=== PATIENT | female | born 1940 | race Hispanic/Latino ===

== ENCOUNTER 2019-07-28 11:38 | Outpatient (CLI) | payer OTHER, SELFPAY ==
[2019-07-28 12:28] LABS: Hemoglobin A1C 6.8 % (<5.7)
[2019-07-28 12:32] LABS: Blood Urea Nitrogen 14 mg/dL (7-17); Calcium 9.5 mg/dL (8.4-10.2); Carbon Dioxide 29 mmol/L (22-30); Chloride 103 mmol/L (98-107); Cholesterol 128 mg/dL (0-200); Estimated Glomerular Filt Rate > 60; Glucose 117 mg/dL (65-105); HDL Direct 44 mg/dL; Potassium 4.3 mmol/L (3.4-5.0); Sodium 138 mmol/L (137-145); Triglycerides 67 mg/dL (<150)
[2019-07-28 12:43] LABS: LDL Cholesterol Direct 67 mg/dL
[2019-07-28 14:40] LABS: Creatinine Urine 45.9 mg/dL
[2019-07-28 14:52] LABS: MALB Creatinine Ratio < 13.1 mg/g (0-30); Microalbumin Urine Random < 6.0 mg/L (0-16.7)
== END 2019-07-28 11:39 | disposition home or self-care (01) ==
LOC: ANHIMG 11:40
PROVIDERS: PCP Internal Medicine; Visit Provider Internal Medicine
DX: E11.9 Type 2 diabetes mellitus without complications (principal); E78.5 Hyperlipidemia, unspecified
CPT/HCPCS: 36415; 80048; 80061; 82043; 83036

== ENCOUNTER 2019-10-27 11:47 | Outpatient (CLI) | payer OTHER, SELFPAY ==
[2019-10-27 13:36] LABS: Basophils Percent Auto 0.2 % (0.2-1.2); Eosinophils Absolute Auto 0.1 K/mm3 (0-0.3); Eosinophils Percent Auto 1.9 % (0-4.4); Hemoglobin 12.5 g/dL (12.0-15.0); Immature Granulocyte Absolute 0.01 K/mm3 (0.00-0.031); Immature Granulocyte Percent A 0.2 % (0-0.5); Immature Platelet Fraction Pct 1.5 % (0.9-11.2); Lymphocytes Absolute Auto 2.01 K/mm3 (0.9-3.2); Lymphocytes Percent Auto 39.1 % (18.3-44.2); Mean Corpuscular HGB Conc 32.9 g/dl (32-36); Mean Corpuscular Hemoglobin 30.4 pg (26-34); Mean Corpuscular Volume 92.5 fl (80-100); Mean Platelet Volume 10.1 fl (7.4-10.4); Monocytes Absolute Auto 0.4 K/mm3 (0.1-0.6); Monocytes Percent Auto 7.6 % (2.6-8.5); Neutrophils Absolute Auto 2.6 K/mm3 (1.3-6.7); Platelet Count Result 143 k/mm3 (150-375); Red Blood Count 4.11 M/mm3 (4.2-5.4); Red Cell Distribution Width 13.5 % (11.5-14.5); White Blood Count 5.1 K/mm3 (4.5-10.0)
[2019-10-27 13:40] LABS: Hemoglobin A1C 6.7 % (<5.7)
[2019-10-27 13:45] LABS: Alanine Aminotransferase 13 U/L (4-35); Albumin Level 4.4 g/dL (3.5-5.1); Alkaline Phosphatase 63 U/L (38-126); Aspartate Amino Transferase 24 U/L (14-36); Bilirubin,Total 0.3 mg/dL (0.2-1.3); Blood Urea Nitrogen 14 mg/dL (7-17); Calcium 9.6 mg/dL (8.4-10.2); Carbon Dioxide 25 mmol/L (22-30); Chloride 106 mmol/L (98-107); Estimated Glomerular Filt Rate > 60; Glucose 92 mg/dL (65-105); Potassium 4.1 mmol/L (3.4-5.0); Sodium 137 mmol/L (137-145)
[2019-10-27 14:08] LABS: Creatinine Urine 28.7 mg/dL
[2019-10-27 14:19] LABS: Microalbumin Urine Random < 6.0 mg/L (0-16.7)
== END 2019-10-27 11:48 | disposition home or self-care (01) ==
PROVIDERS: PCP Internal Medicine; Visit Provider Internal Medicine
DX: E11.9 Type 2 diabetes mellitus without complications (principal)
CPT/HCPCS: 36415; 80053; 82043; 83036; 85025; 85055

== ENCOUNTER 2020-01-29 10:47 | Outpatient (CLI) | payer OTHER, SELFPAY ==
[2020-01-29 11:31] LABS: Hemoglobin A1C 5.9 % (<5.7)
[2020-01-29 11:33] LABS: Alanine Aminotransferase 15 U/L (4-35); Albumin Level 4.6 g/dL (3.5-5.1); Alkaline Phosphatase 63 U/L (38-126); Anion Gap 8 mmol/L (8-16); Aspartate Amino Transferase 27 U/L (14-36); Bilirubin,Total 0.2 mg/dL (0.2-1.3); Blood Urea Nitrogen 15 mg/dL (7-17); Calcium 9.9 mg/dL (8.4-10.2); Carbon Dioxide 27 mmol/L (22-30); Chloride 102 mmol/L (98-107); Estimated Glomerular Filt Rate > 60; Glucose 100 mg/dL (65-105); Potassium 4.5 mmol/L (3.4-5.0); Sodium 137 mmol/L (137-145)
[2020-01-29 11:50] LABS: Creatinine Urine 38.3 mg/dL
[2020-01-29 12:20] LABS: MALB Creatinine Ratio < 15.7 mg/g (0-30); Microalbumin Urine Random < 6.0 mg/L (0-16.7)
== END 2020-01-29 10:48 | disposition home or self-care (01) ==
LOC: ANHLAB 10:49
PROVIDERS: PCP Internal Medicine; Visit Provider Internal Medicine
DX: E11.9 Type 2 diabetes mellitus without complications (principal); M85.80 Other specified disorders of bone density and structure, unspecified site; Z79.899 Other long term (current) drug therapy
CPT/HCPCS: 36415; 80053; 82043; 82306; 83036; 84443

== ENCOUNTER 2020-03-02 13:55 | Outpatient (CLI) | payer OTHER, SELFPAY ==
--- NOTE | ~2020-03-02 | MM_ITS ---
EXAMINATION: MM screening coretta BI w tina HISTORY: Screening TECHNIQUE: Craniocaudal and mediolateral oblique 3-D tomosynthesis images were obtained and synthetic 2-D images were generated. CAD analysis was submitted and interpreted. COMPARISON: Comparison to multiple prior studies sequentially, with oldest reviewed study dated 08/2013. BREAST PARENCHYMAL COMPOSITION: The breasts are heterogeneously dense, which may obscure small masses . FINDINGS: There is no evidence of suspicious mass, calcification, or architectural distortion to sugg est malignancy in either breast. There has been no suspicious interval change. IMPRESSION: 1. No mammographic evidence of malignancy. 2. Recommend routine screening mammography in one year. BI-RADS Category 1: Negative Reviewed, dictated and finalized at location A.
== END 2020-03-02 13:56 | disposition home or self-care (01) ==
LOC: ANHIMG 13:59
PROVIDERS: PCP Internal Medicine; Referring Provider Internal Medicine; Visit Provider Internal Medicine
DX: Z12.31 Encounter for screening mammogram for malignant neoplasm of breast (principal)
CPT/HCPCS: 77063; 77067

== ENCOUNTER 2020-12-31 12:36 | Emergency (ER) | payer MEDICARE, SELFPAY ==
[2020-12-31 12:44] VITALS: BP 103/82; PULSE 106; RESP 16; TEMP 37.3; O2SAT 100
--- NOTE | 2020-12-31 14:28 | ED.SKABFB ---
HPI - Skin/Abscess/Foreign Bdy General Chief complaint: Skin/Abscess/Foreign Body Stated complaint: rash to arm Time Seen by Provider: 12/31/20 13:45 History of Present Illness HPI narrative: Patient presents with rash all over her body. States symptoms have been present for the past couple days and seem to be spreading. She has the rash does not bother her as not itchy there is no pain. She denies any fevers, cough, congestion. She denies any nausea or vomiting. She is unsure what to do about the rash so she came in for evaluation Related Data Home Medications Medication Instructions Recorded Confirmed cholecalciferol (vitamin D3) 25 1,000 unit PO DAILY 06/09/19 07/21/20 mcg (1,000 unit) capsule Allergies Allergy/AdvReac Type Severity Reaction Status Date / Time alendronate sodium Allergy Unknown can not Verified 12/31/20 13:39 recall Review of Systems Review of Systems: CONSTITUTIONAL: Denies fever, chills, or sweats. EYES: Denies visual changes, redness, or discharge. ENT: Denies rhinorrhea, congestion, sore throat, or otalgia. CARDIOVASCULAR: Denies chest pain, palpitations, or edema. RESPIRATORY: Denies cough or dyspnea. GASTROINTESTINAL: Denies abdominal pain, nausea, vomiting, or diarrhea. GENITOURINARY: Denies dysuria or hematuria. SKIN: Denies itching. MUSCULOSKELETAL: Denies back pain, joint pain, or myalgia. NEUROLOGIC: Denies headache, numbness, dizziness, or weakness. PSYCHIATRIC: Denies anxiety or depression. 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 Costochondritis Diabetes Edentulous maxilla Essential hypertension History of Sanchez's palsy History of non-Hodgkin's lymphoma Hx of breast cancer Mixed diabetic hyperlipidemia associated with type 2 diabetes mellitus Mixed stress and urge incontinence Osteopenia Presbyopia Sebaceous cyst Urge incontinence Vitamin D deficiency, unspecified Surgical History Surgical History History of neck surgery S/P partial hysterectomy Family History Family History Mother Family history of diabetes mellitus in first degree relative Sibling Family history of diabetes mellitus in first degree relative Father Family history of heart disease in male family member before age 55 Other Diabetes mellitus Social History Social History Social History: Smoking status: Never smoker Second hand tobacco smoke exposure: No Alcohol intake: never Substance use: never Substance use type: does not use Gender identity (if verbalized by the patient): Female Exam Narrative: GENERAL: Well-appearing, well-nourished, and in no acute distress. HEAD: Normocephalic, atraumatic. EYES: PERRLA and EOMI. ENT: Nares clear, no rhinorrhea or epistaxis. Mucous membranes moist. NECK: Supple. No masses. No JVD ABDOMEN: Soft, nontender, nondistended, normal active bowel sounds. EXTREMITIES: Normal range of motion. No edema. SKIN: Diffuse rash all over the body to include torso and extremities palms and soles are spared no predominance in between the fingers no desquamation no mucosal membrane involvement. Rash is erythematous with central pustules no desquamation no bullae NEURO: No focal deficits. Alert and oriented x3. PSYCH: Normal mood and affect. Course Vital Signs Vital signs: Vital Signs Temperature 37.3 C 12/31/20 12:44 Pulse Rate 106 H 12/31/20 12:44 Respiratory Rate 16 12/31/20 12:44 Blood Pressure 103/82 12/31/20 12:44 Pulse Oximetry 100 12/31/20 12:44 Temperature 37.3 C 12/31/20 12:44 Pulse Rate 90 12/31/20 14:37 Respiratory Rate 18 12/31/20 14:37 Blood Pre
[2020-12-31 14:37] VITALS: BP 110/76; PULSE 90; RESP 18; O2SAT 100
== END 2020-12-31 14:38 | disposition home or self-care (01) ==
PROVIDERS: Emergency Provider Emergency Medicine; PCP Internal Medicine
DX: B09 Unspecified viral infection characterized by skin and mucous membrane lesions (principal); E11.9 Type 2 diabetes mellitus without complications; I10 Essential (primary) hypertension; M85.80 Other specified disorders of bone density and structure, unspecified site; E55.9 Vitamin D deficiency, unspecified; H52.4 Presbyopia; E78.2 Mixed hyperlipidemia; Z85.72 Personal history of non-Hodgkin lymphomas; Z85.3 Personal history of malignant neoplasm of breast
CPT/HCPCS: 99281

== ENCOUNTER 2021-12-14 09:34 | Outpatient (CLI) | payer OTHER, SELFPAY ==
--- NOTE | ~2021-12-14 | MM_ITS ---
EXAMINATION: MM screening coretta BI w tina HISTORY: Screening mammogram TECHNIQUE: Craniocaudal and mediolateral oblique 3-D tomosynthesis images were obtained and synthetic 2-D images were generated. CAD analysis was submitted and interpreted. COMPARISON: 03/02/2020, 02/06/2019, 02/04/2018 bilateral screening mammogram examinations BREAST PARENCHYMAL COMPOSITION: The breasts are heterogeneously dense, which may obscure small masses . FINDINGS: Scattered bilateral benign calcifications. There is no evidence of suspicious mass, calcifi cation, or architectural distortion to suggest malignancy in either breast. There has been no suspici ous interval change. IMPRESSION: 1. No mammographic evidence of malignancy. 2. Recommend routine screening mammography in one year. BI-RADS Category 2: Benign finding(s). Reviewed, dictated and finalized at location A.
== END 2021-12-14 09:35 | disposition home or self-care (01) ==
LOC: ANHIMG 09:36
PROVIDERS: PCP Internal Medicine; Visit Provider Internal Medicine
DX: Z12.31 Encounter for screening mammogram for malignant neoplasm of breast (principal)
CPT/HCPCS: 77063; 77067

== ENCOUNTER 2022-07-14 11:03 | Emergency (ER) | payer OTHER, SELFPAY ==
--- NOTE | ~2022-07-14 | XR_ITS ---
XR hand LT min 3V DATE: 07/14/2022 11:31 INDICATION: Fall one week ago. Swelling. TECHNIQUE: 3 views COMPARISON: None FINDINGS: There is diffuse osteopenia. There is polyarticular osteoarthritis. No fracture, dislocatio n, periosteal reaction or bone destruction or chondrocalcinosis. No erosive change is noted. IMPRESSION: Polyarticular osteoarthritis Osteopenia No recent fracture or dislocation is detected Reviewed, dictated and finalized at location A. NDER DIE MACHINE HELPER
--- NOTE | ~2022-07-14 | CT_ITS ---
EXAMINATION: CT hand LT wo con DATE: 07/14/2022 12:50 INDICATION: Pain, swelling. TECHNIQUE: Computed tomography (CT) of the head was performed without intravenous contrast. The mA wa s adjusted according to patient size. Iterative reconstruction technique was employed. Exam dose: 51 7.67 mGy-cm total exam DLP. Left hand COMPARISON: July 14, 2022 ( FINDINGS: There is osteopenia. Polyarticular osteoarthritis involving particularly the interphalangeal joints. No recent fracture or dislocation is detected. IMPRESSION: No recent fracture or dislocation Polyarticular osteoarthritis Reviewed, dictated and finalized at Location A. Reviewed, dictated and finalized at location A. RNAL CHILD NURSE
--- NOTE | ~2022-07-14 | CT_ITS ---
EXAMINATION: CT brain wo con DATE: 07/14/2022 12:50 INDICATION: Fall. Head injury. TECHNIQUE: Computed tomography (CT) of the head was performed without intravenous contrast. The mA wa s adjusted according to patient size. Iterative reconstruction technique was employed. Exam dose: 60 5.33 mGy-cm total exam DLP. COMPARISON: None FINDINGS: Prominent cavum septum pellucidum. Moderately prominent cerebral and cerebellar volume loss . No intracranial mass lesion or hemorrhage or cerebrovascular accident. No midline shift or mass effec t. No subdural or epidural hematoma is detected. No fracture or bone destruction of the cranial vault is detected. Paranasal sinuses are unremarkable. Limited development of the mastoid air cells, especially on the left. IMPRESSION: Prominent cavum septum pellucidum, anatomic variant Moderately prominent cerebral and cerebellar volume loss No acute intracranial finding or skull fracture Reviewed, dictated and finalized at Location A. Reviewed, dictated and finalized at location A. CY RECRUITER
[2022-07-14 11:14] VITALS: BP 132/61; PULSE 90; RESP 16; TEMP 36.4; O2SAT 100
--- NOTE | 2022-07-14 12:40 | ED.FALL ---
HPI - Fall General Chief Complaint: Fall Stated Complaint: left hand swelling, fall 1 week ago Time Seen by Provider: 07/14/22 11:41 Source: patient Mode of arrival: ambulatory Limitations: no limitations History of Present Illness HPI Narrative: This is a 81 year old female that presents to the ER after a ground level fall a couple weeks ago with left hand pain and swelling. Reports she was getting up to use the restroom in the middle of the night and tripped and fell. She did hit her head. Does not believe she lost consciousness. Reports an injury to the left hand. Reports continued pain and swelling which prompted her to be seen today. Denies neck pain, back pain, vomiting, numbness or weakness. Related Data Home Medications Medication Instructions Recorded Confirmed cholecalciferol (vitamin D3) 25 1,000 unit PO DAILY 06/09/19 07/21/20 mcg (1,000 unit) capsule Allergies Allergy/AdvReac Type Severity Reaction Status Date / Time alendronate sodium Allergy Unknown can not Verified 07/14/22 11:36 recall Review of Systems Review of Systems: CONSTITUTIONAL: Denies fever EYES: Denies visual changes GASTROINTESTINAL: Denies vomiting MUSCULOSKELETAL: Reports joint pain and myalgia. Denies back pain NEUROLOGIC: Denies numbness, or weakness. 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 Costochondritis Diabetes Edentulous maxilla Essential hypertension History of Sanchez's palsy History of non-Hodgkin's lymphoma Hx of breast cancer Mixed diabetic hyperlipidemia associated with type 2 diabetes mellitus Mixed stress and urge incontinence Osteopenia Presbyopia Sebaceous cyst Urge incontinence Vitamin D deficiency, unspecified Surgical History Surgical History History of neck surgery S/P partial hysterectomy Family History Family History Mother Family history of diabetes mellitus in first degree relative Sibling Family history of diabetes mellitus in first degree relative Father Family history of heart disease in male family member before age 55 Other Diabetes mellitus Social History Social History Social History: Smoking status: Never smoker Second hand tobacco smoke exposure: No Alcohol intake: never Substance use: never Substance use type: does not use Living arrangements: with family Occupation/Education: retired Gender identity (if verbalized by the patient): Female Sexual Orientation (if Verbalized by the Patient): Straight or Heterosexual Exam Narrative: GENERAL: Well-appearing, well-nourished, and in no acute distress. HEAD: Normocephalic, atraumatic. EYES: PERRLA and EOMI. ENT: Nares clear, no rhinorrhea or epistaxis. Mucous membranes moist. Oropharynx without tonsillar hypertrophy exudate or other lesions. NECK: Supple. No adenopathy or masses. No midline cervical spine tenderness CHEST: Clear to auscultation. No respiratory distress. No wheezes rales or rhonchi HEART: Regular rate and rhythm. No murmur heard. Normal peripheral pulses. EXTREMITIES: Normal range of motion. Mild edema about the left hand dorsal surface with bruising present. Normal radial pulse. Normal sensation SKIN: Warm, dry, no rash. NEURO: No focal deficits. Alert and oriented x3. PSYCH: Normal mood and affect Course Course Emergency Course: Patient and family updated on workup and agree with plan of care Vital Signs Vital signs: Vital Signs Temperature 97.6 F 07/14/22 11:14 Pulse Rate 90 07/14/22 11:14 Respiratory Rate 16 07/14/22 11:14 Blood Pressure 132/61 07/14/22 11:14 Pulse Oximetry 100 07/14/22 11:14 Oxygen Delivery
== END 2022-07-14 14:17 | disposition home or self-care (01) ==
PROVIDERS: Emergency Provider Physician Assistant; PCP Internal Medicine
DX: S60.222A Contusion of left hand, initial encounter (principal); S09.90XA Unspecified injury of head, initial encounter; I10 Essential (primary) hypertension; E11.69 Type 2 diabetes mellitus with other specified complication; E78.2 Mixed hyperlipidemia; N39.46 Mixed incontinence; E55.9 Vitamin D deficiency, unspecified; M85.842 Other specified disorders of bone density and structure, left hand; Z85.72 Personal history of non-Hodgkin lymphomas; Z85.3 Personal history of malignant neoplasm of breast; Z90.711 Acquired absence of uterus with remaining cervical stump; Z79.84 Long term (current) use of oral hypoglycemic drugs; M19.042 Primary osteoarthritis, left hand; W01.0XXA Fall on same level from slipping, tripping and stumbling without subsequent striking against object, initial encounter
CPT/HCPCS: 70450; 73130; 73200; 99284

== ENCOUNTER 2023-08-12 14:22 | Outpatient (CLI) | payer OTHER, SELFPAY ==
--- NOTE | ~2023-08-12 | MM_ITS ---
EXAMINATION: MM screening coretta BI w tina HISTORY: Screening mammogram TECHNIQUE: Craniocaudal and mediolateral oblique 3-D tomosynthesis images were obtained and synthetic 2-D images were generated. CAD analysis was submitted and interpreted. COMPARISON: 12/06/2021, 03/02/2020 bilateral screening mammogram examinations BREAST PARENCHYMAL COMPOSITION: The breasts are extremely dense, which lowers the sensitivity of mamm ography. FINDINGS: Scattered bilateral benign calcifications are again noted. There is no evidence of suspicio us mass, calcification, or architectural distortion to suggest malignancy in either breast. There has been no suspicious interval change. IMPRESSION: 1. No mammographic evidence of malignancy. 2. Recommend routine screening mammography in one year. BI-RADS Category 2: Benign finding(s). Reviewed, dictated and finalized at location A.
== END 2023-08-12 14:23 | disposition home or self-care (01) ==
PROVIDERS: PCP Internal Medicine; Visit Provider Internal Medicine
DX: Z12.31 Encounter for screening mammogram for malignant neoplasm of breast (principal)
CPT/HCPCS: 77063; 77067

== ENCOUNTER 2025-03-01 13:41 | Outpatient (CLI) | payer OTHER, SELFPAY ==
--- OUTSIDE RECORDS SUMMARY | 2009-03-17 05:00 | XMS_ITS | Continuity of Care Document ---
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 Name Role Phone Parry OD, Rafa Unavailable Unavailable Procedures Procedure Date Office/outpatient Visit, Est Eye Exam & Treatment Refraction Post-op Follow-up Visit Remove Cataract, Insert Lens Office/outpatient Visit, Est [facility]Professional Post-op Follow-up Visit Post-op Follow-up Visit Remove Cataract, Insert Lens Office/outpatient Visit, [facility] Advance Directives Directive Yes / No Effective Date File Name No Information Encounters Encounter Description Practice Location Reason(s) For Visit Diagnoses Date Provider Providers Copied on Encounter Office/outpat ient Visit, Est [facility], [address] [place] [address] [address], [place], [place], [id number], tel:[phone] [facility] No Information Feb- 9-200 9 Parry OD Rafa. [address] , [address], [place], [address], [place]. tel:[phone] [facility], [address], [place], [place], [id number], [place] tel:[phone] [facility] No Information 7-200 9 Parry OD Rafa. [address] , [address], [place], [address], [place]. tel:[phone] Referring Provider: Romario Andrade MD C, [address], [place], [address]. tel:[phone] [facility], [address], [place], [place], [id number], [place] tel:[phone] [facility] No Information Apr-0 3-200 9 Parry OD Rafa. [address] , [address], [place], [place], [facility], [place]. tel:[phone] [facility], [address], [place], [place], [id number], [place] tel:[phone] [facility] No Information Apr-0 2-200 9 Angeline Nevarez. [address] [facility] , [address], [place], [place], [facility], [place]. tel:[phone] Office/outpat ient Visit, Est [facility], [address], [place], [place], [id number], [place] tel:[phone] [facility] No Information Mar-2 6-200 9 Angeline Nevarez. [address] , [address], [place], [facility], [place]. tel:[phone] Referring Provider: Roque Groves, [address], [place], [facility]. tel:[phone] [facility], [address], [place], [place], [id number], [place] tel:[phone] [facility] No Information Aug-2 5-200 8 Angeline Nevarez. [address], [place], [facility], [place]. tel:[phone] [facility], [address], [place], [place], [id number], [place] tel:[phone] [facility] No Information 8200 8 Parry OD Rafa. [address] [facility] [address] , [address], [place], [facility], . tel:[phone] [facility], [address], [place], [place], [id number], tel:[phone] [facility] No Information 8200 8 Angeline Nevarez. [address] [facility] [address], [address], [place], [facility], . tel:[phone] Office/outpat ient Visit, [facility], [address], [place], [place], [id number], tel:[phone] [facility] No Information 7200 8 Angeline Nevarez. [address] [facility] [address] , [address], [place], [facility], [place]. tel:[phone] Referring Provider: Roque Groves [facility] [address], [place], [facility]. tel:[phone] Family History Family Member Type Diagnosis Age At Onset No Information Payers Payer name Insurance type Covered green party ID Authoriza tigreg(s) [place] [id number] Social History Type Description Quantity Date Captured Comments Sex Female Smoking Status No Information Chief Complaint And Reason For Visit No Information Reason For Referral Reason For Referral No Information History Of Present Illness Encounter Date Complaint History Of Prese nt Illness No Information Functional Status Date Functional Assessmen t No Information Instructions Date Instruction Additional Infor mation No Information Assessments Type Assessment Date No Information Patient Care Teams Name Effective Dates (start - stop) Status Members No Information
--- OUTSIDE RECORDS SUMMARY | 2025-02-23 08:16 | XMS_ITS | Continuity of Care Document ---
Author Organization [facility] Address [address] [place] [address] Phone Care Team Providers Care Director Of Diagnostic Imaging Name Role Phone Aydee Barbosa DO Unavailable Unavailable Allergies, Adverse Reactions, Alerts Substance Reaction Status Criticality No Known Allergies Active No Inform ation Medications Medication Instructions Dosage Effective Dates (start - stop) Status Comments donepezil 10 mg tablet take 1 tablet by oral route every day in the evening 10 MG - Active new dose Blood Glucose Test strips Use to check blood sugar three times daily - Active E11.51. Fill wit h most covered brand per insurance lancets Use to check blood sugar three times daily - Active E11.51. Fill wit h most covered brand per insurance Blood Glucose Monitoring kit Use to check blood sugar once daily - Active E11.51. Fill wi th most covered brand per insurance metformin 1,000 mg tablet take 1 tablet by oral route 2 times every day with morning and evening meals 1000 MG - Active Please call pt t o moss picker prescription simvastatin 20 mg tablet take 1 tablet by oral route every day in the evening 20 MG - Active omeprazole 40 mg capsule,delayed release take 1 capsule by oral route every day before a meal 40 MG - Active Vitamin B-6 50 mg tablet Take one daily - Active Vitamin B-12 500 mcg tablet spray 1 tablet by otic route every day 1 tablet - Active Vitamin C 500 mg tablet take 1 tablet by oral route every day 1 tablet - Active Vitamin D3 25 mcg (1,000 unit) capsule take 1 capsule by oral route every day 1 capsule - Active vitamin E 400 unit capsule take 1 capsule by oral route every day 1 capsule - Active magnesium 250 mg tablet take 1 tablet by oral route every day 1 tablet - Active Eye Multivitamin 7,160 unit-113 mg-100 unit tablet take 1 tablet by oral route 2 times every day 1 tablet - Active Procedures Procedure Date FALL RISK ASSESSMENT DOC'D PRES/ABSN URINE INCON ASSESS MED LIST DOCD IN [facility] ROUTINE VENIPUNCTURE [place] OFFICE [id number] BODY MASS INDEX DOCD SYST BP LT 130 MM HG DIAST BP < 80 MM HG CBC, INC PLATELETS AND DIFFERENTIAL COMPREHEN METABOLIC PANEL CMP HEMOGLOBIN A1C HGA1C, GLYCO THYROID STIMULATION HORMONE(TSH) 2024 CBC, INC PLATELETS AND DIFFERENTIAL COMPREHEN METABOLIC PANEL CMP HEMOGLOBIN A1C HGA1C, GLYCO LIPID PANEL MICROALBUMIN, QN (URINE) CREATININE, (U-R) THYROID STIMULATION HORMONE(TSH) 2024 MED LIST DOCD IN [facility] Pt inelig neg scrn depres URINALYSIS, DIPSTICK (UA) - Office Lab M ROUTINE VENIPUNCTURE [place] OFFICE [id number] BODY MASS INDEX DOCD SYST BP LT 130 MM HG DIAST BP < 80 MM HG Kept Appointment No Charge Encounter Aug FORM CHARGE BASIC METABOLIC PANEL(BMP) HEMOGLOBIN A1C HGA1C, GLYCO Pt inelig neg scrn depres ROUTINE VENIPUNCTURE [place] OFFICE [id number] BODY MASS INDEX DOCD SYST BP GE 130 - 139MM HG DIAST BP < 80 MM HG OFFICE [id number] BODY MASS INDEX DOCD SYST BP LT 130 MM HG DIAST BP < 80 MM HG EKG (ELECTROCARDIOGRAM) CBC, INC PLATELETS AND DIFFERENTIAL COMPREHEN METABOLIC PANEL CMP HEMOGLOBIN A1C HGA1C, GLYCO LIPID PANEL MICROALBUMIN, QN (URINE) CREATININE, (U-R) THYROID STIMULATION HORMONE(TSH) 2023 FALL RISK ASSESSMENT DOC'D PRES/ABSN URINE INCON ASSESS ROUTINE VENIPUNCTURE IL OFFICE [id number] BODY MASS INDEX DOCD SYST BP LT 130 MM HG DIAST BP < 80 MM HG Pt inelig neg ishmael camejo OFFICE [id number] BODY MASS INDEX DOCD SYST BP LT 130 MM HG DIAST BP < 80 MM HG CBC, INC PLATELETS AND DIFFERENTIAL COMPREHEN METABOLIC PANEL CMP 3 HEMOGLOBIN A1C HGA1C, GLYCO THYROID STIMULATION HORMONE(TSH) 2022 VITAMIN B12 (SERUM) FREE T4 (FT4) URINALYSIS, DIPSTICK (UA) - Office Lab N ROUTINE VENIPUNCTURE [place] OFFICE [id number] BODY MASS INDEX DOCD SYST BP LT 130 MM HG DIAST BP < 80 MM HG Admin influenza virus vac FLU VACC PRSV FREE INC ANTIG Kept Appointment No Charge Encounter Aug MICROALBUMIN, QN (URINE) CREATININE, (U-R) URINALYSIS, REFLEX (UA) ROUTINE VENIPUNCTURE IL CBC, INC PLATELETS AND DIFFERENTIAL COMPREHEN METABOLIC PANEL CMP 3 HEMOGLOBIN A1C HGA1C, GLYCO LIPID PANEL THYROID STIMULATION HORMONE(TSH) 2022 TELEPHONE E&M SERVICE BY A PHYSICIAN;5-1 0 MINUTES OF MEDICAL DISCUSSION Pt inelig neg scrn depres OFFICE [id number] BODY MASS INDEX DOCD SYST BP LT 130 MM HG DIAST BP < 80 MM HG Pt inelig neg scrn depres CBC, INC PLATELETS AND DIFFERENTIAL COMPREHEN METABOLIC PANEL [facility] 2 HEMOGLOBIN A1C HGA1C, GLYCO LIPID PANEL THYROID STIMULATION HORMONE(TSH) 2021 URINALYSIS, DIPSTICK (UA) - Office Lab S ROUTINE VENIPUNCTURE Admin influenza virus vac FLU VACC PRSV FREE INC ANTIG OFFICE [id number] BODY MASS INDEX DOCD SYST BP LT 130 MM HG DIAST BP < 80 MM HG Pt inelig neg scrn depres BASIC METABOLIC PANEL(BMP) CBC, INC PLATELETS AND DIFFERENTIAL HEMOGLOBIN A1C HGA1C, GLYCO ROUTINE VENIPUNCTURE OFFICE [id number] BODY MASS INDEX DOCD SYST BP LT 130 MM HG DIAST BP < 80 MM HG FALL RISK ASSESSMENT DOC'D PRES/ABSN URINE INCON ASSESS CBC, INC PLATELETS AND DIFFERENTIAL COMPREHEN METABOLIC PANEL CMP HEMOGLOBIN A1C HGA1C, GLYCO LIPID PANEL MICROALBUMIN, QN (URINE) CREATININE, (U-R) THYROID STIMULATION HORMONE(TSH) 2021 URINALYSIS, DIPSTICK (UA) - Office Lab J ROUTINE VENIPUNCTURE URINALYSIS, REFLEX (UA) Removal Impacted Cerumen Irrigation/Lava ge, Unilateral EXTREMITY STUDY/BILATERAL (CARLYN) 022 OFFICE [id number] BODY MASS INDEX DOCD SYST BP LT 130 MM HG DIAST BP < 80 MM HG Advance Directives Directive Yes / No Effective Date File Name Life Support Not Answered N/A N/A Intubation Not Answered N/A N/A Antibiotics Not Answered N/A N/A IV Fluid Support Not Answered N/A N/A Tube Feed Not Answered N/A N/A Other Directive N/A N/A WARNING:The information contained in this section is historical and is provided for information only and does not constitute a legal document or any assurance that the information is still accurate. Please verify the information with the wallace of the legal document before using it for clinical purposes. Encounters Encounter Description Practice Location Reason(s) For Visit Diagnoses Date Provider Providers Copied on Encounter [facility] [address], [place], [place], [id number] , [place] tel: [phone] [facility] No Information 5 Chelsey Bajwa. [address] [facility], [place], [place], [id number] , [place]. tel: [phone] OFFICE [id number]-DCF-DZ TAILED [facility], [address], [place], [place], [address] , [place] tel: [phone] [facility] 3 month (chief complaint)C hronic Conditions (chief complaint)c hronic conditions (chief complaint) Unspecified dementia, unspecified severity, without behavioral disturbance, psychotic disturbance, mood disturbance, and anxietyType 2 diabetes mellitus with diabetic polyneuropathyHype rlipidemia, unspecifiedPersona l history of malignant neoplasm of breastMixed incontinencePostme nopausalType 2 diabetes mellitus with diabetic peripheral angiopathy without gangrene 5 Cherie Meza. [address] [place] [address], [address], [place]. tel: [phone] Referring Provider: Aydee Groves, [address] [place] [address], [address] . tel:[phone] [facility], [address], [place], [place], [address] , tel: [phone] [facility] No Information 5 Hetal Orantes. [address] [place] [address], [id number] , . tel: [phone] Referring Provider: Derrick Crespo, [address] [place] [address], [address]. tel:[phone] [facility], [address], [place], [place], [address] , [place] tel: [phone] [facility] No Information 5 Chelsey Bajwa. [address] [place] [address], [id number] , [place]. tel: [phone] [facility], [address], [place], [place], [address] , [place] tel: [phone] [facility] Post-menopausal 5 Chelsey Bajwa. [address] [place] [address], [id number] , [place]. tel: [phone] [facility], [address], [place], [place], [address] , [place] tel: [phone] [facility] No Information 5 Hetal Orantes. [address] [facility], [address], [id number] , [place]. tel: [phone] Referring Provider: Cherelle Rascon, [address] [place] [address], [place], [address] . tel:[phone] OFFICE ZKISS-RRD-MW [facility], [address], [place], [place], [address] , [place] tel: [phone] [facility] 3 mo f/u (chief complaint)C hronic Conditions (chief complaint) Unspecified dementia, unspecified severity, without behavioral disturbance, psychotic disturbance, mood disturbance, and anxietyType 2 diabetes mellitus with diabetic peripheral angiopathy without gangreneHyperlipid emia, unspecifiedDegener ative disease of nervous system, unspecified 5 Abiodun Villarreal. [facility], [place], [place], [address] , [place]. tel: [phone] Referring Provider: Aydee Groves, [facility] [place], [address] . tel:[phone] [facility], [address], [place], [place], [address] , [place] tel: [phone] [facility] Follow Up of 6 Months (chief complaint) No Information 5 Cherie Meza. [facility] [address], [place], [address], [place]. tel: [phone] Referring Provider: Aydee Groves, [facility] [address], [place], [address] . tel:[phone] [facility], [address], [place], [place], [address] , [place] tel: [phone] [facility] No Information 5 Chelsey Bajwa. [facility] [address], [place], [place], [id number] , [place]. tel: [phone] [facility], [address], [place], [place], [address] , [place] tel: [phone] [facility] No Information 5 Chelsey Bajwa. [address] [place] [address], [id number] , [place]. tel: [phone] [facility], [address], [place], [place], [address] , [place] tel: [phone] [facility] Encounter for screening mammogram for malignant neoplasm of breast 5 Cherie Meza. [address] [place] [address], [address], . tel: [phone] [facility], [address], [place], [place], [address] , tel: [phone] [facility] Type 2 diabetes mellitus with diabetic peripheral angiopathy without gangrene 5 Chelsey Bajwa. [address] [place] [address], [id number] , [place]. tel: [phone] [facility], [address], [place], [place], [address] , [place] tel: [phone] [facility] No Information 5 Chelsey Bajwa. [address] [place] [address], [id number] , [place]. tel: [phone] [facility], [address], [place], [place], [address] , [place] tel: [phone] [facility] No Information 4 Chelsey Bajwa. [address] [place] [address], [id number] , [place]. tel: [phone] Referring Provider: Aydee Groves, [address] [place] [address], [address] . tel:[phone] [facility], [address], [place], [place], [address] , [place] tel: [phone] [facility] No Information 4 Chelsey Bajwa. [address] [place] [address], [id number] , [place]. tel: [phone] [facility], [address], [place], [place], [address] , [place] tel: [phone] [facility] No Information 4 Hetal Jonesn. [address] [address], [place], [place], [address] , [place]. tel: [phone] Referring Provider: Cherelle Rascon, [address] [place] [address], [address] . tel:[phone] OFFICE TRFRK-SPQ-HB [facility], [address], [place], [place], [address] , [place] tel: [phone] [facility] 3 month check up (chief complaint)C hronic Conditions (chief complaint) Type 2 diabetes mellitus with diabetic peripheral angiopathy without gangreneUnspecifie d dementia, unspecified severity, without behavioral disturbance, psychotic disturbance, mood disturbance, and anxiety 4 Abiodun Villarreal. [address] [place] [address], [id number] , [place]. tel: [phone] Referring Provider: Aydee Groves, [address] [place] [address], [address] . tel:[phone] [facility], [address], [place], [place], [address] , [place] tel: [phone] [facility] No Information 4 Cherie Meza. [address] [place] [address], [address], . tel: [phone] OFFICE XCJSD-ZXA-IB [facility], [address], [place], [place], [address] , [place] tel: [phone] [facility] chronic conditions (chief complaint)C hronic Conditions (chief complaint) Other chest painUnspecified dementia, unspecified severity, without behavioral disturbance, psychotic disturbance, mood disturbance, and anxietyType 2 diabetes mellitus with diabetic peripheral angiopathy without gangreneExcessive crying of child, adolescent or adult 4 Chelsey Bajwa. [address] [place] [address], [id number] , [place]. tel: [phone] Referring Provider: Aydee Groves, [address] [place] [address], [address] . tel:[phone] [facility], [address], [place], [place], [address] , [place] tel: [phone] [facility] No Information 4 Hetal Orantes. [address], [id number] , . tel: [phone] Referring Provider: Derrick Crespo, [address] [place] [address], [place], [address]. tel:[phone] OFFICE RDMRT-RBT-NH [facility], [address], [place], [place], [address] , [place] tel: [phone] [facility] 3 month (chief complaint)C hronic Conditions (chief complaint)c hronic conditions (chief complaint) Type 2 diabetes mellitus with diabetic polyneuropathyHype rlipidemia, unspecifiedOther specified hearing loss, right earDementia without behavioral disturbance, psychotic disturbance, mood disturbance, or anxiety, unspecified dementia severity, unspecified dementia type 4 Cherie Meza. [address] [place] [address], [address], [place]. tel: [phone] Referring Provider: Aydee Groves, [address] [place] [address], [address] . tel:[phone] OFFICE IKAQS-EJO-VU [facility], [address], [place], [place], [address] , [place] tel: [phone] [facility] Chronic Conditions (chief complaint) Body mass index [BMI] 20.0-20.9, adultType 2 diabetes mellitus with diabetic peripheral angiopathy without gangrenePersonal history of non-Hodgkin lymphomasPersonal history of malignant neoplasm of breastHyperlipidem ia, unspecifiedMixed incontinenceDegene rative disease of nervous system, unspecifiedCogniti ve decline 4 Abiodun Cherelle. [address] [place] [address], [id number] , [place]. tel: [phone] Referring Provider: Aydee Groves, [address] [place] [address], [address] . tel:[phone] [facility], [address], [place], [place], [address] , tel: [phone] [facility] No Information 3 Chelsey Bajwa. [address] [place] [address], [id number] , [place]. tel: [phone] [facility], [address], [place], [place], [address] , tel: [phone] [facility] Type 2 diabetes mellitus with diabetic peripheral angiopathy without gangrenePersonal history of non-Hodgkin lymphomasOther symptoms and signs involving cognitive functions and awarenessMixed incontinence 3 Hetal Orantes. [address] [place] [address], [id number] , . tel: [phone] Referring Provider: Derrick Crespo, [address] [place] [address], [address]. tel:[phone] OFFICE IATEW-WHR-UV [facility], [address], [place], [place], [address] , tel: [phone] [facility] 4 month (chief complaint)c hronic conditions (chief complaint)C hronic Conditions (chief complaint) Type 2 diabetes mellitus with diabetic peripheral angiopathy without gangreneDegenerati ve disease of nervous system, unspecifiedPersona l history of non-Hodgkin lymphomasHyperlipi demia, unspecifiedPersona l history of malignant neoplasm of breastOther specified hearing loss, right earMixed incontinenceCognit hernandez declineEncounter for screening mammogram for malignant neoplasm of breast 3 Cherie Meza. [address] [place] [address], [address], [place]. tel: [phone] Referring Provider: Aydee Groves, [address] [place] [address], [address] . tel:[phone] [facility], [address], [place], [place], [address] , [place] tel: [phone] [facility] No Information 3 Chelsey Bajwa. [address] [place] [address], [id number] , [place]. tel: [phone] Referring Provider: Aydee Groves, [address] [place] [address], [address] . tel:[phone] [facility], [address], [place], [place], [address] , [place] tel: [phone] [facility] Type 2 diabetes mellitus with diabetic peripheral angiopathy without gangreneMixed incontinence 3 Chelsey Bajwa. [address] [place] [address], [id number] , [place]. tel: [phone] Referring Provider: Aydee Groves, [address] [place] [address], [address] . tel:[phone] [facility], [address], [place], [place], [address] , [place] tel: [phone] [facility] No Information 3 Hetal Orantes. [address], [id number] , [place]. tel: [phone] Referring Provider: Aydee Groves, [address] [place], [address] . tel:[phone] [facility], [address], [place], [place], [address] , [place] tel: [phone] [facility] Hyperlipidemia, unspecifiedType 2 diabetes mellitus with diabetic peripheral angiopathy without gangrene 3 Chelsey Bajwa. [address] [place] [address], [id number] , [place]. tel: [phone] Referring Provider: Aydee Groves, [address] [place] [address], [address] . tel:[phone] [facility], [address], [place], [place], [address] , [place] tel: [phone] [facility] No Information 3 Hetal Jonesn. [address] [place] [address], [id number] , . tel: [phone] Referring Provider: Aydee Groves, [address] [place] [address], [address] . tel:[phone] TELEPHONE E&M SERVICE BY A PHYSICIAN;5- 10 MINUTES OF MEDICAL DISCUSSION [facility], [address], [place], [address] , [place] tel: [phone] [facility] Encounter for follow-up examination after completed treatment for conditions other than malignant neoplasm 3 Chelsey Bajwa. [address] [place] [address], [id number] , [place]. tel: [phone] Referring Provider: Aydee Groves, [address] [place] [address], [address] . tel:[phone] OFFICE PMVBU-WAU-ZF [facility], [address], [place], [place], [address] , tel: [phone] [facility] Chronic Conditions (chief complaint) Body mass index [BMI] 20.0-20.9, adultType 2 diabetes mellitus with diabetic peripheral angiopathy without gangreneHyperlipid emia, unspecifiedPersona l history of malignant neoplasm of breastPersonal history of non-Hodgkin lymphomasMixed incontinence 3 Abiodun Villarreal. [address] [place] [address], [id number] , . tel: [phone] Referring Provider: Aydee Groves, [address] [place] [address], [address] . tel:[phone] [facility], [address], [place], [place], [address] , tel: [phone] [facility] Toenail fungus 3 Chelsey Bajwa. [address] [place] [address], [id number] , . tel: [phone] OFFICE MHSQK-RJE-EU [facility], [address], [place], [place], [address] , tel: [phone] [facility] Chronic Conditions (chief complaint)o ther (chief complaint) Body mass index [BMI] 20.0-20.9, adultUrinary incontinence, mixedPersonal history of non-Hodgkin lymphomasHyperlipi demia, unspecified hyperlipidemia typeType 2 diabetes mellitus with diabetic peripheral angiopathy without gangrene, without long-term current use of insulinLeukocytes in urine 2 Abiodun Villarreal. [address] [place] [address], [id number] , [place]. tel: [phone] Referring Provider: Aydee Groves, [address] [place] [address], [address] . tel:[phone] [facility], [address], [place], [place], [address] , tel: [phone] [facility] Personal history of non-Hodgkin lymphomas 2 Chelsey Bajwa. [address] [place] [address], [id number] , [place]. tel: [phone] [facility], [address], [place], [place], [address] , tel: [phone] [facility] 3 month (chief complaint)C hronic Conditions (chief complaint) Type 2 diabetes mellitus with diabetic peripheral angiopathy without gangrene, without long-term current use of insulinHistory of breast cancerHyperlipidem ia, unspecified hyperlipidemia typeUrinary incontinence, mixedPersonal history of non-Hodgkin lymphomasWeight lossChest pain at rest [address] [facility]. [address] [place] [address], [address], [place]. tel: [phone] Referring Provider: Aydee Groves, [address] [place] [address], [address] . tel:[phone] [facility], [address], [place], [place], [address] , tel: [phone] [facility] new pt. (chief complaint)C hronic Conditions (chief complaint) Osteoarthritis of multiple joints, unspecified osteoarthritis typeHistory of breast cancerUrinary incontinence, mixedHyperlipidemi a, unspecified hyperlipidemia typeCold intoleranceDM type 2 with diabetic peripheral neuropathyHearing loss of right ear, unspecified hearing loss typeImpacted cerumen, right earHistory of cancer of stomachType 2 diabetes mellitus with diabetic peripheral angiopathy without gangrene, without long-term current use of insulin [address] [facility]. [address] [place] [address], [address], [place]. tel: [phone] Referring Provider: Aydee Groves, [address] [place] [address], [address] . tel:[phone] Family History Family Member Type Diagnosis Age At Onset Brother Problem CAD, DM2, HTN, OA, obesity Twin sister Problem DM2 Mother Problem CAD, DM,OA Father Problem CAD, HTN, HLD obesity Immunizations Vaccine Date Status Comments Fluzone High-Dose Trivalent, preservative free administered Note: Wily ; Sour ce: Other Provider Pneumococcal conjugate vacci ne, 21 valent (PCV21), polysaccharide [id number] conjugate, preservative free administered Note: Reynaldo best ; Source: Other Provider Marcy Spikevax COVID Vacci ne, mRNALNP, 50 mcg/0.5 mL dose, 12 yrs and older administered Note: Wily ; Sour ce: Other Provider Fluzone High-Dose Trivalent, preservative free administered Note: Wily ; Sour ce: Other Provider Pneumococcal conjugate PCV20 administered Note: Wily ; Source: Other Provider Fluzone High-Dose, high dose , preservative free administered Source: New Immuniza tion Record SHINGRIX (Zoster vaccine recombinant, adjuvanted) administered Note: Wily ; Source: Other Provider SHINGRIX (Zoster vaccine recombinant, adjuvanted) administered Note: Wily ; Source: Other Provider Pfizer (Bivalent Booster) CO VID Vac, 30mcg/0.3mL, 12+ years administered Note: Naveen jauregui ; Source: Other Provider Fluzone High-Dose, high dose , preservative free administered Source: New Immuniza tion Record Pfizer (Diluent Reconstitute d) COVID19 Vaccine, 0.3mL per dose, 2 doses, administered 21 days apart administered Note: WILY ; Sour ce: Other Provider Pfizer (Diluent Reconstitute d) COVID19 Vaccine, 0.3mL per dose, 2 doses, administered 21 days apart administered Note: [facility] ; Source: Other Provider Pfizer ([employer] d) COVID19 Vaccine, 0.3mL per dose, 2 doses, administered 21 days apart administered Note: [facility] ; Source: Other Provider Payers Payer name Insurance type Covered constitution party ID Authoriza tion(s) Act[employer] MB [id number] Actif[employer] MB [id number] Act[employer] MB [id number] Social History Type Description Quantity Date Captured Comments Alcohol Use Details Unknown Caffeine Use Details Unknown Tobacco Use Status No Information Smoking Status No Information Sex Female Gender Identity Female Chief Complaint And Reason For Visit No Information Reason For Referral Reason For Referral No Information Plan Of Treatment Date Type Action Status Goal Dietary manageme nt education, guidance, and counseling completed Goal Dietary manageme nt education, guidance, and counseling completed Goal Dietary manageme nt education, guidance, and counseling completed Referral Ordered: [facility] -Ophthalmology (related to Type 2 diabetes mellitus with diabetic peripheral angiopathy without gangrene) ordered Referral Referred To: [facility] Ordered: Referrals: Ophthalmology. [facility]. Evaluation/diagnostic/treatment - Level 3 Appointment date/timeframe: 05/11/2025 ordered Referral Referred To: [address] [place] [address], [address] [phone] Ordered: DXA BONE DENSITY, AXIAL Appointment date/timeframe: 02/09/2025 ordered Referral Referred To: Home Care Ordered: Referrals: Home Care. Location: [facility]. Evaluation/diagnostic/treatment - Level 3 ordered Referral Ordered: EKG (ELECTROCARDIOGRAM) ordered Referral Referred To: Dr. Jose C Larkin Ordered: Referrals: Otolaryngology. Dr. Jose C Larkin. Evaluation/diagnostic/treatment - Level 3 ordered Referral Referred To: [address] [place] [address], [address] [phone] Ordered: SCREENING MAMMOGRAM (CAD) Appointment date/timeframe: 08/12/2023 ordered Referral Referred To: Lamont Boyd DPM [address] [facility]
[address] [place], [phone] Ordered: Referrals: Podiatry. Lamont Boyd DPM Evaluation/diagnostic/treatment - Level 3 Appointment date/timeframe: 08/08/2022 ordered Referral Referred To: Reese Calero [address] [facility] [address] [place], [place], [phone] Ordered: Referrals: Oncology. Reese Calero. Evaluation/diagnostic/treatment - Level 3 Appointment date/timeframe: 04/02/2022 ordered Referral Referred To: [facility] Ordered: Referrals: Ophthalmology. [facility]. Evaluation/diagnostic/treatment - Level 3 Appointment date/timeframe: 03/02/2022 ordered Referral Referred To: Onofre Cowan [address] [place], [place], [phone] Ordered: Referrals: Cardiology. Onofre Cowan. Evaluation/diagnostic/treatment - Level 3 Appointment date/timeframe: 05/30/2022 ordered Referral Ordered: EXTREMITY STUDY/BILATERAL (CARLYN) Bilateral ordered Referral Referred To: [address] [place], [phone] Ordered: SCREENING MAMMOGRAM (CAD) Bilateral Appointment date/timeframe: 12/01/2021 ordered Patient Education Kegel Exercises: Care I nstructions completed History Of Present Illness Encounter Date Complaint History Of Prese nt Illness 3 month Here with her ni nunu and nephew in law as well as her . Moved into assisted living on Saturday. Doing well. He had flu and COVID-vaccine. Had mammogram in July Chronic Conditions *See Chronic Conditions [facility] chronic conditions *See Chronic Conditions [facility] 3 mo f/u denies having an y concerns Chronic Conditions *See Chronic Conditions [facility] Follow Up of 6 Months pt due for : mammogram ninunu will make the appointment, pt. need DEXARecent DrYenny visits: 0Future appt: 0Vaccinations due: TD and RSVOutstanding referrals: Chronic Conditions *See Chronic Conditions [facility] 3 month check up Patient was see n in the office in November with complaints of chest pain.She denies reoccurring since her office visit.She was prescribed omeprazole to help with but not taking this and denies issues with acid reflux.Zoe Beck is concerned about needs being met given the patient's dementia and her literacy issues. chronic conditions *See Chronic Conditions [facility] Chronic Conditions *See Chronic Conditions [facility] chronic conditions *See Chronic Conditions HPI Chronic Conditions *See Chronic Conditions [facility] 3 month Chronic Conditions *See Chronic Conditions [facility] chronic conditions *See Chronic Conditions [facility] 4 month Patient is here with niece, Zoe and Ervin . Niece Sveta has stepped in to assist patient and . needs to help patient with medications because she is forgetful.Sveta says that their bank account has over drawn a couple times so she is going to take them to the bank today to be added to their account for further management. 6 CIT indicating cognitive decline.Labs to be drawn today for further evaluation.States she received another flu shot at [facility] x 2 weeks agoCovid and Pneumonia also done Chronic Conditions *See Chronic Conditions [facility] Chronic Conditions *See Chronic Conditions [facility] Chronic Conditions *See Chronic Conditions [facility] other as stated belowU jodi was present for leukocytes today. 3 month Patient presents today for a routine follow-up. She is here with her who is establishing with our office as a new patient. She was a new patient in May. They got lost today. I did get her previous medical records and reviewed them. Patient thought that she had a history of stomach cancer, but oncology notes stating she had non-Hodgkin's lymphoma in 2003 status post chemotherapy and had been following up with oncology yearly until April 2020. She is under the care of Dr. Calero.She has a history of breast cancer. Mammogram order was sent to [place] [facility] at her last office visit.She was also treated for urinary tract infectionPt states the veins in lower extremities cramp.Pt has not had mammo Chronic Conditions *See Chronic Conditions [facility] new pt. Patient is here to establish care with a new PCP.She used to see a Dr. Patel in [place].PMH: congenital hearing loss left ear, DM2, HLD, OA hands and right knee. Left breast cancer. s/p lumpectomy in , stomach cancer with iv chemo, Diabetes in late 40s.PSH: Left breast biopsy, bilateral cataract, Social: . no children. no tobacco, rare etoh, no illicits, she exercises daily for 15 minutes- yoga/bikeFamily history: Mom: CAD, DM,OADad: CAD, HTN, HLD, obesitysister: DMbrother: CAD DM, obesity, OA 75Tests:mammogram 2019colonoscopy 2019 normalvaccines:covid up to dateflu UTDshingles- nopneumonia- states she is UTDtetanus- unsurestates that she is always cold. hasn't had labs drawn in almost 10 months. unsure if her thyroid has been checked at that time.see chronic conditions Chronic Conditions *See Chronic Conditions HPI Functional Status Date Functional Assessmen t No Information Instructions Date Instruction Additional Infor frieda We will try to find the mammogram you had done earlier this year. Bone density will be ordered as well Related to Personal history of malignant neoplasm of breast Continue on current medication. Labs will be checked. Sent referral for diabetic eye exam Related to Type 2 diabetes mellitus with diabetic polyneuropathy Continue on current medication. Levels will be checked Related to Hyperlipidemia, unspecified Continue with the in continence supplies.We would not recommend any type of medication due to potential side effects. I do recommend Kegel exercises. Handout to be printed out.Call with any questions or concernsLabs todayReturn in 4 months Related to Mixed incontinence I am glad you are ad justing well at the new assisted living facility.We will increase the donepezil to 10 mg daily.Please call with any worsening symptoms or concerns Related to Unspecified dementia, unspecified severity, without behavioral disturbance, psychotic disturbance, mood disturbance, and anxiety Disease process Urinary Incontinence Fall Risk Prevention I'm do feel it is in both you and your 's best interest to work on moving to a facility to help with management of your care given your dementia and his lung issues.Zoe is going to help assist with this.Please call if we can help Related to Unspecified dementia, unspecified severity, without behavioral disturbance, psychotic disturbance, mood disturbance, and anxiety Continue simvastatin as prescribed. Cholesterol levels will be checked Related to Hyperlipidemia, unspecified This age related sofia nges of the brain noted on previous imaging not uncommonly seen with aging Related to Degenerative disease of nervous system, unspecified Continue medications as prescribed. We will check an A1c again today Related to Type 2 diabetes mellitus with diabetic peripheral angiopathy without gangrene Disease process Continue your donepe zil as prescribed.I will send a message to our company social sciences department chair to see if you qualify for assistance at home Related to Unspecified dementia, unspecified severity, without behavioral disturbance, psychotic disturbance, mood disturbance, and anxiety Continue your metfor min as prescribed.We will check your A1c again today with lab work.Eye exam is up-to-date and due again in April.You plan to receive the COVID-vaccine from the pharmacy after you leave the office today.You will get a copy of the date of your last flu shot.Please call with questions or concerns prior to next appointment.Follow-up again in 3 months Related to Type 2 diabetes mellitus with diabetic peripheral angiopathy without gangrene Disease process you mentioned you fe el you are crying more often when you think about the past.you have no other signs of depressionif you feel this is getting worse please call and let me know Related to Excessive crying of child, adolescent or adult continue with the memory medicat ion Related to Unspecified dementia, unspecified severity, without behavioral disturbance, psychotic disturbance, mood disturbance, and anxiety continue with diabetes medicatio n Related to Type 2 diabetes mellitus with diabetic peripheral angiopathy without gangrene Your EKG was normalY ou sounded good when I listened to your heart and your lungsYou are complaining of symptoms suggestive of heart burn or acid refluxyour vital signs were excellent - your blood pressure is great and your oxygen level is normalI am going to start you on a medication for acid reflux to see if it helpsreturn to me as scheduled in January Related to Other chest pain Disease process Continue on your med ication. We will check levels today Related to Hyperlipidemia, unspecified We will check A1c to day. Metformin will be refilled.We discussed the importance of a balanced diet and staying active. Related to Type 2 diabetes mellitus with diabetic polyneuropathy We will start a new medication called donepezil for her to take in the evening.I will also enroll her into the [facility].Please make sure that her medications are being set up for her.Please try to be as active and eat a well-balanced diet.Call with any questions or concernsCBC, CMP, A1c, TSH, micro todayReturn in 3 months Related to Dementia without behavioral disturbance, psychotic disturbance, mood disturbance, or anxiety, unspecified dementia severity, unspecified dementia type Follow-up with ENT a s scheduled. Continue with the hearing aid Related to Other specified hearing loss, right ear Urinary Incontinence Fall Risk Prevention Disease process Memory test shows a mild decline.We will continue to monitor your memory.Call us with changes Related to Cognitive decline This age related sofia nges of the brain noted on previous imaging not uncommonly seen with aging.Please call the office with memory concerns Related to Degenerative disease of nervous system, unspecified Continue the oxybuty chanda and call us if issues worsen Related to Mixed incontinence Mammogram is scheduled in July Related to Personal history of malignant neoplasm of breast We will continue to monitor lab work and can refer you back to hematology if there are any changes Related to Personal history of non-Hodgkin lymphomas Continue your simvas tatin as prescribed.Cholesterol levels will be checked Related to Hyperlipidemia, unspecified Your A1c was well-co ntrolled only check this in March.We will repeat this again at your next appointment.Eye exam is up-to-date Related to Type 2 diabetes mellitus with diabetic peripheral angiopathy without gangrene Dietary management e ducation, guidance, and counseling Related to Body mass index (BMI) 20.0-20.9, adult Weight monitoring Related to Bod y mass index (BMI) 20.0-20.9, adult Disease process We will send referra l for you to see your oncologist. You are due to see Dr. Flores.his number is:[phone] call to schedule appointment Related to Personal history of non-Hodgkin lymphomas Memory test today sh ows impairment.We will check labs today to further explain your cognitive decline.If everything is normal then we will proceed with a formal memory test in 2 months and discuss medications or next steps.Call with any questions or concernsCBC, CMP, A1c, TSH, B12, RPR, urine dip todayReturn in 2 months Related to Cognitive decline I will send referral to to ENT next-door Related to Other specified hearing loss, right ear Refill sent of the oxybutynin Re lated to Mixed incontinence Continue on your cur rent medication. We will check liver enzymes today. Related to Hyperlipidemia, unspecified This was the changes noted on your CT scan when he went to the emergency room.Memory test today. We will draw blood work as well. See below Related to Degenerative disease of nervous system, unspecified We will send order for mammogram Related to Personal history of malignant neoplasm of breast A1c today.I will sen d referral for you to get a diabetic eye exam Related to Type 2 diabetes mellitus with diabetic peripheral angiopathy without gangrene Disease process Continue your oxybut ynin as prescribed. Related to Mixed incontinence Follow-up with Dr. Regino castellano yearly as scheduled Related to Personal history of non-Hodgkin lymphomas Mammogram is up-to-d ate and due again in November.We will also send an order for a bone density scan to be done at the same time Related to Personal history of malignant neoplasm of breast Continue your simvas tatin as prescribed.We will check your fasting cholesterol levels next month.CBC, CMP, lipid panel, A1c, TSH, microalbumin, and urinalysisPlease call with questions or concerns prior to next follow-up.Follow-up again in 4 months Related to Hyperlipidemia, unspecified Continue your metfor min as prescribed.We will check your hemoglobin A1c with lab work next month.Diabetic eye exam is up-to-date and due again in December.Continue to walk as much as possible and take your medications as prescribed to prevent worsening blood flow in your legs. Status: Able to self-manage condition. Goals: Your goal is to work on healthy eating habits. Barriers: No barriers to goal achievement have been identified. Related to Type 2 diabetes mellitus with diabetic peripheral angiopathy without gangrene Weight monitoring Related to Bod y mass index (BMI) 20.0-20.9, adult Disease process Dietary management e ducation, guidance, and counseling Related to Body mass index (BMI) 20.0-20.9, adult Urine will be sent f or culture to rule out UTI Related to Leukocytes in urine Follow up with oncol Dr. Elder berkowitz on the as scheduled Related to Personal history of non-Hodgkin lymphomas We will repeat labs today and send a copy to your oncologist.CBC, CMP, lipid panel, A1c, TSH, and urinalysisI will also obtain a copy of your recent eye exam.Influenza vaccine was administered today.Continue to monitor your blood sugars and call us with any numbers less than 70 or if these are consistently running greater than 200.Continue to stay as active as possible.Status: Meeting treatment plan goals. Goals: Your goal is to manage your medicine. Barriers: No barriers to goal achievement have been identified. Related to Type 2 diabetes mellitus with diabetic peripheral angiopathy without gangrene, without long-term current use of insulin Your simvastatin guicho ly as prescribed.You state your chest pain has resolved but I also recommend seeing the lead business systems analyst for work-up to rule out blockages of your heart.Referral was sent.Please call to schedule an appointment Related to Hyperlipidemia, unspecified hyperlipidemia type I will send a refill of your oxybutynin to the pharmacy and check your urine today for abnormalities.Make sure that you are drinking more water than coffee these are foods I'd like you to avoid:tomato products, coffee and tea, carbonated beverages, chocolate, orange, sam and limes, alcoholic beverages, spicy foods, sweeteners, processed foods, onions and cranberriesthese foods can make overactive bladder worse Related to Urinary incontinence, mixed Disease process Dietary management e ducation, guidance, and counseling Related to Body mass index (BMI) 20.0-20.9, adult Weight monitoring Related to Bod y mass index (BMI) 20.0-20.9, adult I will proceed with referring you to cardiology.You prefer to go through [facility] in [place].If you have more frequent chest pain, heart palpitations or shortness of breath please let me know.Call with any questions or concernsCBC, BMP, A1c todayReturn in 3 months Related to Chest pain at rest Given your history o f lymphoma, I will send you back to your oncologist.Try to eat smaller more frequent meals.Please call if you develop any night sweats, fatigue, fever, abdominal pain Related to Weight loss I sent in oxybutynin for you to take once a day.This may dry out your mouth.Make sure that you are drinking more water than coffee these are foods I'd like you to avoid:tomato products, coffee and tea, carbonated beverages, chocolate, orange, sam and limes, alcoholic beverages, spicy foods, sweeteners, processed foods, onions and cranberriesthese foods can make overactive bladder worse Related to Urinary incontinence, mixed I will send a referr al for you to see the oncologist Related to Personal history of non-Hodgkin lymphomas A1c todayI sent in r efills of your Contour next stripsI will send a referral for you to get a diabetic eye exam at the [facility] in [place].Status: Meeting treatment plan goals. Goals: Your goal is to manage your medicine. Barriers: No barriers to goal achievement have been identified. Related to Type 2 diabetes mellitus with diabetic peripheral angiopathy without gangrene, without long-term current use of insulin Continue on your current medicat ion Related to Hyperlipidemia, unspecified hyperlipidemia type Please call Raymond lundy to get your mammogram scheduled Related to History of breast cancer Disease process Status: Requires mor e self-management coaching. Goals: Your goal is to manage your medicine. No barriers to goal achievement have been identified.A1c todayfoot exam today Related to DM type 2 with diabetic peripheral neuropathy Status: Meeting chadd tment plan goals.you have decreased blood flow in the legs from plaque build up.this was found on testing todaywalk as much as possibletake your meds as prescribed Goals: Your goal is to be active. Related to Type 2 diabetes mellitus with diabetic peripheral angiopathy without gangrene, without long-term current use of insulin please call us with any decreased appetite, weight loss, abdominal pain, nausea or vomitingI will try to get records from Dr. Patel.Call with any questions or concernscbc, cmp, lipids, A1c, TSH, microreturn in 3 monthsI recommend shingles vaccine at local pharmacy Please continue to follow COVID precautions including: wearing a mask or face covering in public, washing your hands frequently and remaining socially distant when in public. Related to History of cancer of stomach ear wash today Related to Impac ronen cerumen, right ear we will check your thyroid level s Related to Cold intolerance continue with the hearing aid Re lated to Hearing loss of right ear, unspecified hearing loss type I sent in your simva statinwe will check levels today Related to Hyperlipidemia, unspecified hyperlipidemia type I will check urine t estif your labs are ok we could try a medication but it may cause dry mouth these are foods I'd like you to avoid:tomato products, coffee and tea, carbonated beverages, chocolate, orange, sam and limes, alcoholic beverages, spicy foods, sweeteners, processed foods, onions and cranberriesthese foods can make bladder worse Related to Urinary incontinence, mixed continue with eunice donahue as neededcall if the knee continues to bother you we may xray in future Related to Osteoarthritis of multiple joints, unspecified osteoarthritis type I will send order fo r mammogram to [facility] Related to History of breast cancer Fall Risk Prevention Urinary Incontinence Disease process Assessments Type Assessment Date No Information Patient Care Teams Name Effective Dates (start - stop) Status Members No Information
--- NOTE | ~2025-03-01 | MM_ITS ---
EXAMINATION: MM screening [place] BI w tina HISTORY: Screening TECHNIQUE: Craniocaudal and mediolateral oblique 3-D tomosynthesis images were obtained and synthetic 2-D images were generated. CAD analysis was submitted and interpreted. COMPARISON: 12/14/2021 BREAST PARENCHYMAL COMPOSITION: The breasts are extremely dense, which lowers the sensitivity of mammography. FINDINGS: There is no evidence of suspicious mass, calcification, or architectural distortion to suggest malignancy. There has been no suspicious interval change. IMPRESSION: 1. No mammographic evidence of malignancy. Recommend routine screening mammography in one year. BI-RADS Category 2: Benign finding(s) Reviewed, dictated and finalized at location Q. IMPRESSION: 1. No mammographic evidence of malignancy. Recommend routine screening mammogra phy in one year. BI-RADS Category 2: Benign finding(s)
--- OUTSIDE RECORDS SUMMARY | 2025-03-01 14:55 | XMS_ITS | Clinical Summary ---
Author Organization [facility] Address [address] [place] [address] Phone Care Team Providers Care Store Worker Name Role Phone Aydee Barbosa DO Primary Care Provider [phone] Nidhi Williamson MD Unavailable [phone] Allergies No known active allergies Medications metFORMIN (GLUCOPHAGE) 500 mg tablet 03/18/2017Metformin hcl, po solid 500 mg TabletPOdailyCurrent Medication 03/18/20 17 Active montelukast (SINGULAIR) 10 mg tablet 03/18/2017Singulair, po solid 10 mg TabletPOdailyCurrent Medication 03/18/20 17 Active nateglinide (STARLIX) 60 mg tabletIndicat ions:type 2 diabetes mellitus 03/18/2017Starlix, po solid 60 mg TabletPOTIDCurrent Medication 03/18/20 17 Active cyanocobalami n (Vitamin B-12) 1,000 mcg tabletIndicat ions:Preventi on of Vitamin B12 Deficiency 03/18/2017Vitamin B-12, po solid 1000 mcg TabletPOas directedCurrent Medication 03/18/20 17 Active cholecalcifer ol 400 unit capsule 03/18/2017Vitamin d, po solid 400 unit TabletPOdailyCurrent Medication 03/18/20 17 Active glimepiride (AMARYL) 2 mg tabletIndicat ions:type 2 diabetes mellitus 01/25/20 18 Active simvastatin (ZOCOR) 20 mg tablet 01/25/20 18 Active tolterodine LA (DETROL LA) 4 mg 24 hr capsule 01/25/20 18 Active Active Problems Problem Noted Date Diagnosed Date History of colon polyps 06/29/2019 Overview (06/29/2019): Added automatically from request for surgery [id number] 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 03/25/2018 Cancer Staging:Clinical stage from 03/26/2018:Stage III(Follicular lymphoma) - Signed by Jaime Henning MD on 03/26/2018 Polyp of colon 08/19/2014 Immunizations Immunization Administration Dates Next Due Influenza, Quad, Adjuvantate d, Intramuscular 02/13/2020 Influenza, Trivalent, High D ose, Split, Preservative Free, Intramuscular 01/23/2019 Influenza, Unspecified 02/23/2019,02/23/2018 Pfizer SARS-CoV-2 Monovalent Vaccination (12+ Yrs) PURPLE 04/18/2021,08/29/2020,08/08/2020 Pneumococcal, Unspecified 02/23/2018 Surgical History Surgery Date Site/Laterality Comments COLONOSCOPY MASTECTOMY 05/20/1995 - 05/19/1996 Left CERVICAL SPINE SURGERY HYSTERECTOMY Medical History Medical History Date Comments Lymphoma (HCC) 2003 Diabetes mellitus Breast cancer, left (HCC) 1995 s/p ch emotherapy Hyperlipidemia Colon polyp Type 2 diabetes mellitus Family History Medical History Relation Name Comments Diabetes Brother Diabetes Father Diabetes Mother Diabetes Sister Relation Name Status Comments Brother Father Mother Sister Social History Tobacco Use Types Packs/Day Years Used Date Smoking Tobacco: Never Smokeless Tobacco: Never Alcohol Use Standard Drinks/Week Comments No 0 (1 standard drink = 0.6 oz pur e alcohol) Personal Safety Answer Date Recorded Getting School Help Needed Not on file 07/12 Comments No Sex and Gender Information Value Date Recorded Sex Assigned at Not on file Legal Sex Female 9:02 PM [employer] Gender Identity Not on file Sexual Orientation Not on file Obstetrics History Last Filed Vital Signs Vital Sign Reading Time Taken Comments Blood Pressure 160/74 02/08/2022 12:57 PM CDT Pulse 94 02/08/2022 12:57 PM CDT Temperature 36.8 C (98.2 F) 02/08/2022 12:57 PM CDT Respiratory Rate 16 02/08/2022 12:5 7 PM CDT Oxygen Saturation 99% 02/08/2022 12: 57 PM CDT Inhaled Oxygen Concentration - - Weight 47.1 kg (103 lb 12.8 oz) 022 12:57 PM CDT Height 149.9 cm (4' 11) 02/08/2022 12: 57 PM CDT Body Mass Index 20.97 02/08/2022 12:57 PM CDT Plan of Treatment Health Maintenance Due Date Last Done Comments Depression Screening 1940 Osteoporosis Screening-Bone Density Scan 1940 DTaP/Tdap/Td Vaccine (1 - Tdap) 12/25/1951 Hepatitis B Screening 1958 Pneumococcal vaccine 65+ (1 of 2 - PCV) 12/25/1959 02/23/2018 Zoster Vaccine (1 of 2) 12/25/1959 Well Visit 65+ 2005 Fall Risk Assessment 04/12/2021 04/12/2020 Covid-19 Vaccine (2024-2 6 season) 2025 04/18/2021, 08/29/2020, 08/08/2020 Influenza Vaccine (#1) 2025 , 02/23/2019, 01/23/2019, Additional history exists Insurance [facility] Advance Directives For more information, please contact: [phone] * Full Code (Latest Code Status on File) Date Activated Date Inactivated Comments 04/12/2020 9:49 AM 04/12/2020 4:48 PM Care Teams Store Worker Relationship Specialty Start Date End Date Aydee Barbosa DO PCP - General Internal Medicine 12/18/21 Nidhi Williamson MD Medical Oncologist/Handy Worker Hematology 01/31/23
== END 2025-03-01 13:42 | disposition home or self-care (01) ==
LOC: ANHFOHIMG 13:42
PROVIDERS: PCP Internal Medicine; Visit Provider Internal Medicine
DX: Z12.31 Encounter for screening mammogram for malignant neoplasm of breast (principal)
CPT/HCPCS: 77063; 77067